=== PATIENT | female | born 1945 | race Two or more races ===

== ENCOUNTER 2023-11-11 00:30 | Inpatient (IN) | payer MEDICARE, OTHER ==
[~2023-11-11] VITALS: Ht 157.5 cm; Wt 64.4 kg
[~2023-11-11 00:30] MED LIST: ARIP15TA18 PO
[2023-11-11 01:14] LABS: BASOPHILS # (AUTO) 0.1 K/uL (0.0-0.2); BASOPHILS % (AUTO) 1.1 % (0.0-2.0); EOSINOPHILS # (AUTO) 0.1 K/uL (0.0-0.7); EOSINOPHILS % (AUTO) 1.4 % (0.0-6.0); HEMATOCRIT 36 % (33-45); HEMOGLOBIN 11.9 g/dL (11.5-14.8); LYMPHOCYTES # (AUTO) 2.1 K/uL (0.8-4.8); LYMPHOCYTES % (AUTO) 28.5 % (20.0-44.0); MEAN CORPUSCULAR HEMOGLOBIN 32 PG (26.0-33.0); MEAN CORPUSCULAR HGB CONC 33 g/dl (31.0-36.0); MEAN CORPUSCULAR VOLUME 96 fL (82-100); MONOCYTES # (AUTO) 0.6 K/uL (0.1-1.30); MONOCYTES % (AUTO) 7.9 % (2.0-12.0); NEUTROPHILS # (AUTO) 4.6 K/uL (1.8-8.9); NEUTROPHILS % (AUTO) 61.1 % (43.0-81.0); PLATELET COUNT (AUTO) 257 K/uL (150-450); RED BLOOD CELL COUNT(AUTO) 3.74 MIL/uL (4.0-5.2); RED CELL DISTRIBUTION WIDTH 14.5 % (11.5-15.0); WHITE BLOOD COUNT (AUTO) 7.5 K/uL (4.3-11.0)
[2023-11-11 01:33] LABS: CALCIUM, SERUM 9.1 mg/dL (8.5-10.1); CARBON DIOXIDE 29 mmol/L (21-32); CHLORIDE 103 mmol/L (98-107); CREATININE 1.2 mg/dL (0.6-1.3); GLUCOSE 91 mg/dL (74-106); POTASSIUM 4.4 mmol/L (3.5-5.1); SODIUM SERUM 139 mmol/L (136-145); UREA NITROGEN, BLOOD 23 mg/dL (7-18)
[2023-11-11 01:46] LABS: NT-PRO BNP 56 pg/mL (0-125)
[2023-11-11] MEDS ORDERED: CT SWABBABLE VALVE TRANS SET 1 EA INFUS.SET MC ONE (02:36)
[2023-11-11] MEDS ORDERED: IOHEXOL-350 100 ML VIAL IV ONE (02:36)
[2023-11-11] MEDS ORDERED: IV NS 0.9% 250 ML IV ONE (02:37)
[2023-11-11] MEDS: IV NS 0.9% 500 ML BAG IV ONE (04:20)
[2023-11-11] MEDS ORDERED: MAGNESIUM HYDROXIDE 30 ML UDC PO PRN (05:00)
[2023-11-11] MEDS ORDERED: MAG HYDROX/AL HYDROX/SIMETH 30 ML UDC PO PRN (05:00)
[2023-11-11] MEDS ORDERED: ACETAMINOPHEN 325 MG TABLET PO PRN (05:00)
[2023-11-11] MEDS ORDERED: ZOLPIDEM TARTRATE 5 MG TABLET PO PRN (05:00)
[2023-11-11] MEDS ORDERED: NITROGLYCERIN 30 GM TUBE TP PRN (05:00)
[2023-11-11] MEDS ORDERED: Z GUARD REMEDY 4 OZ OINT TP PRN (05:00)
[2023-11-11] MEDS: ENOXAPARIN SODIUM 40 MG/0.4 ML DISP.SYRIN SQ SCH (05:31)
[2023-11-11 05:34] VITALS: BP 114/52; TEMP 97.9; O2SAT 96
[2023-11-11 07:05] LABS: BASOPHILS # (AUTO) 0.1 K/uL (0.0-0.2); EOSINOPHILS # (AUTO) 0.1 K/uL (0.0-0.7); EOSINOPHILS % (AUTO) 2.4 % (0.0-6.0); HEMATOCRIT 35 % (33-45); HEMOGLOBIN 11.6 g/dL (11.5-14.8); LYMPHOCYTES % (AUTO) 37.7 % (20.0-44.0); MEAN CORPUSCULAR HEMOGLOBIN 32 PG (26.0-33.0); MEAN CORPUSCULAR HGB CONC 34 g/dl (31.0-36.0); MEAN CORPUSCULAR VOLUME 97 fL (82-100); MONOCYTES # (AUTO) 0.5 K/uL (0.1-1.30); MONOCYTES % (AUTO) 9.8 % (2.0-12.0); NEUTROPHILS # (AUTO) 2.5 K/uL (1.8-8.9); NEUTROPHILS % (AUTO) 49.1 % (43.0-81.0); PLATELET COUNT (AUTO) 242 K/uL (150-450); RED BLOOD CELL COUNT(AUTO) 3.58 MIL/uL (4.0-5.2); WHITE BLOOD COUNT (AUTO) 5.2 K/uL (4.3-11.0)
[2023-11-11 07:14] LABS: ALANINE AMINOTRANSFERASE 21 U/L (12-78); ALBUMIN 2.5 g/dL (3.4-5.0); ALKALINE PHOSPHATASE 104 U/L (46-116); ASPARTATE AMINOTRANSFERASE 14 U/L (15-37); BILIRUBIN,DIRECT 0.1 mg/dL (0.0-0.2); BILIRUBIN,TOTAL 0.6 mg/dL (0.2-1.0); CALCIUM, SERUM 8.5 mg/dL (8.5-10.1); CARBON DIOXIDE 27 mmol/L (21-32); CHLORIDE 107 mmol/L (98-107); CREATININE 0.9 mg/dL (0.6-1.3); GLUCOSE 83 mg/dL (74-106); MAGNESIUM 2.2 mg/dL (1.8-2.4); PHOSPHORUS 3.8 mg/dL (2.5-4.9); POTASSIUM 4.2 mmol/L (3.5-5.1); SODIUM SERUM 140 mmol/L (136-145); TOTAL PROTEIN, SERUM 5.5 g/dL (6.4-8.2); UREA NITROGEN, BLOOD 20 mg/dL (7-18)
[2023-11-11] MEDS ORDERED: ASPI-966 PO (07:58)
[2023-11-11] MEDS ORDERED: DIVA250T PO (07:58)
[2023-11-11] MEDS ORDERED: LISI10TA29 PO (07:58)
[2023-11-11] MEDS ORDERED: LEVO100T9 PO (07:58)
[2023-11-11] MEDS ORDERED: FURO20TA4 PO (07:58)
[2023-11-11] MEDS ORDERED: RISP0.2515 PO (07:58)
[2023-11-11] MEDS ORDERED: POTA10TA11 PO (07:58)
[2023-11-11] MEDS ORDERED: ATOR20TA PO (07:58)
[2023-11-11] MEDS ORDERED: GABA-532 PO (07:58)
[2023-11-11 08:00] VITALS: BP 126/60; TEMP 98.3; O2SAT 96
[2023-11-11] MEDS: ASPIRIN 81 MG TAB.CHEW PO SCH (08:16)
[2023-11-11] MEDS: PANTOPRAZOLE 40 MG TABLET.DR PO SCH (08:16)
[2023-11-11 12:00] VITALS: BP 116/59; TEMP 97.7; O2SAT 96
[2023-11-11] MEDS ORDERED: ASPIRIN/ACETAMINOPHEN/CAFFEINE 1 EACH TABLET PO PRN (15:30)
[2023-11-11 16:00] VITALS: BP 99/74; TEMP 97.1; O2SAT 97
[2023-11-11] MEDS: risperiDONE 0.25 MG TABLET PO SCH (16:14)
[2023-11-11] MEDS: GABAPENTIN 100 MG CAPSULE PO SCH (16:15)
[2023-11-11 20:00] VITALS: BP 102/70; TEMP 97.7; O2SAT 99
[2023-11-11] MEDS: DIVALPROEX SODIUM 250 MG TABLET.DR PO SCH (21:00)
[2023-11-11] MEDS: ATORVASTATIN 10 MG TABLET PO SCH (21:26)
[2023-11-12] VITALS: BP 112/52; TEMP 97.8; O2SAT 95
[2023-11-12 04:00] VITALS: BP 121/50; TEMP 97.7; O2SAT 97
[2023-11-12 08:00] VITALS: BP 127/49; TEMP 97.7; O2SAT 99
[2023-11-12] MEDS: ARIPIPRAZOLE 5 MG TABLET PO SCH (08:25)
[2023-11-12] MEDS: POTASSIUM CHLORIDE 10 MEQ TABLET.SA PO SCH (08:25)
[2023-11-12] MEDS: LEVOTHYROXINE SODIUM 75 MCG TABLET PO SCH (08:25)
[2023-11-12] MEDS: FUROSEMIDE 20 MG TABLET PO SCH (08:30)
[2023-11-12] MEDS: LISINOPRIL (10MG) 10 MG TABLET PO SCH (08:30)
[2023-11-12 12:00] VITALS: BP 110/55; TEMP 97.7; O2SAT 94; O2SAT 95
[2023-11-12] MEDS ORDERED: ASPI-1169 PO (14:18)
[2023-11-12] MEDS ORDERED: LEVO75TA PO (14:18)
[2023-11-12 16:00] VITALS: BP 113/47; TEMP 97.7; O2SAT 93
[2023-11-12 18:00] VITALS: BP 113/47; TEMP 97.7; O2SAT 93
== END 2023-11-12 17:40 | DRG 206 ==
LOC: ER 00:33 → TELE1 04:39
PROVIDERS: ADMIT Nurse Practitioner Acute Care; ATTEND Student in an Organized Health Care Education/Training Program
DX: M94.0 Chondrocostal junction syndrome [Tietze] (principal); E03.9 Hypothyroidism, unspecified; E78.5 Hyperlipidemia, unspecified; F31.9 Bipolar disorder, unspecified; I10 Essential (primary) hypertension; G62.9 Polyneuropathy, unspecified; R74.8 Abnormal levels of other serum enzymes; Z20.822 Contact with and (suspected) exposure to COVID-19
CPT/HCPCS: 36415; 71045-TC; 80048-TC; 80076-TC; 83735-TC; 83880; 84100-TC; 84443-TC; 84484-TC; 85025-TC; 85378-TC; 93307-TC; 93970-TC; G0378; J1650; J7040; J7050; Q9967